=== PATIENT | male | born 1980 | race Caucasian/White ===

== ENCOUNTER 2021-05-11 11:51 | Inpatient (IN) | payer OTHER ==
[2021-05-11 12:33] VITALS: BMI 27.8
[2021-05-11] MEDS ORDERED: MAGNESIUM CITRATE 300 ML BOTTLE PO PRN (13:02)
[2021-05-11] MEDS ORDERED: IBUPROFEN 400 MG TABLET (FP) PO PRN (13:02)
[2021-05-11] MEDS ORDERED: BISMUTH SUBSALICYLATE 524 MG/30 ML PO PRN (13:02)
[2021-05-11] MEDS ORDERED: ONDANSETRON *ODT* 4 MG TABLET SL PRN (13:02)
[2021-05-11] MEDS ORDERED: ACETAMINOPHEN 325 MG TABLET (FP) PO PRN ×2 (13:02)
[2021-05-11] MEDS ORDERED: MENTHOL/PHENOL 1 EACH UD MM PRN (13:02)
[2021-05-11] MEDS ORDERED: NICOTINE 10 MG CARTRIDGE (INHALER) IH PRN (13:02)
[2021-05-11] MEDS ORDERED: MAGNESIUM HYDROX 2400MG/30ML ORAL SUSPENSION 30 ML CUP PO PRN (13:02)
[2021-05-11] MEDS ORDERED: MAG HYDROX/AL HYDROX/SIMETH 30 ML UNIT-DOSE CUP PO PRN (13:02)
[2021-05-11] MEDS: PRENATAL VITAMINS W/ FOLIC ACID TABLET (FP) PO SCH (14:59)
[2021-05-11] MEDS: hydrOXYzine PAMOATE 25 MG CAPSULE (FP) PO SCH ×3 (14:59→22:08)
[2021-05-11] MEDS: diazePAM 5 MG TABLET PO SCH ×2 (17:53→22:07)
[2021-05-11 18:46] LABS: HEMATOCRIT 43.6 % (35.4-49); HEMOGLOBIN 14.5 GM/dL (11.7-16.9); MCH 27.1 pg (25.7-33.7); MCHC 33.2 g/dl (32.0-35.9); MEAN CELL VOLUME 81.8 fl (80-96); MEAN PLT VOLUME 7.9 fl (7.5-11.1); PLATELET COUNT 304 10^3/uL (134-434); RBC 5.33 M/mm3 (4.00-5.60); RDW 14.7 % (11.9-15.9); WHITE BLOOD COUNT 10.8 K/mm3 (4.0-10.0)
[2021-05-11 18:49] LABS: CALCIUM 9.7 mg/dL (8.5-10.1)
[2021-05-11 18:52] LABS: ALBUMIN 4.2 g/dl (3.4-5.0); BLOOD UREA NITROGEN 23.4 mg/dL (7-18)
[2021-05-11 18:56] LABS: CREATININE 1.1 mg/dL (0.55-1.3)
[2021-05-11 18:57] LABS: BILIRUBIN,TOTAL 0.6 mg/dL (0.2-1); TOT PROT 8.3 g/dl (6.4-8.2)
[2021-05-11 19:37] LABS: HIV INTERPRETATION NEGATIVE (NEGATIVE)
[2021-05-11] MEDS: THIAMINE HCL 100 MG TABLET (FP) PO SCH (22:08)
[2021-05-11] MEDS: MELATONIN 5 MG TABLETS PO SCH (22:08)
[2021-05-12] MEDS ORDERED: methaDONE HCL 10 MG TABLET ONE (04:26)
[2021-05-12] MEDS ORDERED: methaDONE HCL 40 MG DISPERSABLE TABLET ONE (04:26)
[2021-05-12] MEDS ORDERED: methaDONE HCL 10 MG TABLET PO SCH (06:00)
[2021-05-12] MEDS: methaDONE 40 MG, methaDONE 30 MG PO SCH (06:54)
[2021-05-12] MEDS: hydrOXYzine PAMOATE 25 MG CAPSULE (FP) PO SCH ×2 (06:54→10:27)
[2021-05-12] MEDS: diazePAM 5 MG TABLET PO SCH ×3 (06:55→18:29)
[2021-05-12] MEDS: PRENATAL VITAMINS W/ FOLIC ACID TABLET (FP) PO SCH (10:27)
[2021-05-12] MEDS: diazePAM 5 MG TABLET PO PRN ×2 (18:29→22:36)
[2021-05-12] MEDS: THIAMINE HCL 100 MG TABLET (FP) PO SCH (22:37)
[2021-05-12] MEDS: MELATONIN 5 MG TABLETS PO SCH (22:37)
[2021-05-13] MEDS: diazePAM 5 MG TABLET PO SCH ×4 (00:05→22:14)
[2021-05-13] MEDS: PANTOPRAZOLE 40 MG TABLET PO SCH ×2 (00:37→10:50)
[2021-05-13] MEDS ORDERED: methaDONE HCL 40 MG DISPERSABLE TABLET ONE (04:49)
[2021-05-13] MEDS ORDERED: methaDONE HCL 10 MG TABLET ONE (04:49)
[2021-05-13] MEDS: methaDONE 40 MG, methaDONE 30 MG PO SCH (05:32)
[2021-05-13] MEDS ORDERED: ERGOCALCIFEROL (VIT D2) 50,000 UNIT (1.25 MG) CAPSULE PO SCH (10:00)
[2021-05-13] MEDS: PRENATAL VITAMINS W/ FOLIC ACID TABLET (FP) PO SCH (10:50)
[2021-05-13] MEDS: diazePAM 5 MG TABLET PO PRN ×2 (10:51→17:09)
[2021-05-13] MEDS: METHOCARBAMOL 500 MG TABLET PO PRN ×2 (17:10→22:15)
[2021-05-13] MEDS: THIAMINE HCL 100 MG TABLET (FP) PO SCH (22:13)
[2021-05-13] MEDS: MELATONIN 5 MG TABLETS PO SCH (22:13)
[2021-05-14] MEDS ORDERED: methaDONE HCL 10 MG TABLET ONE (04:46)
[2021-05-14] MEDS ORDERED: methaDONE HCL 40 MG DISPERSABLE TABLET ONE (04:46)
[2021-05-14] MEDS: methaDONE 40 MG, methaDONE 30 MG PO SCH (06:21)
[2021-05-14] MEDS: diazePAM 5 MG TABLET PO SCH ×2 (06:21→17:44)
[2021-05-14] MEDS: diazePAM 5 MG TABLET PO PRN (10:48)
[2021-05-14] MEDS: PANTOPRAZOLE 40 MG TABLET PO SCH (10:49)
[2021-05-14] MEDS: PRENATAL VITAMINS W/ FOLIC ACID TABLET (FP) PO SCH (10:49)
[2021-05-14] MEDS: hydrOXYzine PAMOATE 25 MG CAPSULE (FP) PO PRN ×2 (17:46→22:03)
[2021-05-14] MEDS: METHOCARBAMOL 500 MG TABLET PO PRN (17:46)
[2021-05-14] MEDS: THIAMINE HCL 100 MG TABLET (FP) PO SCH (22:04)
[2021-05-14] MEDS: MELATONIN 5 MG TABLETS PO SCH (22:04)
[2021-05-15] MEDS ORDERED: methaDONE HCL 10 MG TABLET ONE (04:36)
[2021-05-15] MEDS ORDERED: methaDONE HCL 40 MG DISPERSABLE TABLET ONE (04:37)
[2021-05-15] MEDS ORDERED: diazePAM 5 MG TABLET PO ONE (06:00)
[2021-05-15] MEDS: methaDONE 40 MG, methaDONE 30 MG PO SCH (06:39)
[2021-05-15 09:25] VITALS: BP 103/71; PULSE 53; TEMP 96.9
[2021-05-15] MEDS: PANTOPRAZOLE 40 MG TABLET PO SCH (10:32)
[2021-05-15] MEDS: PRENATAL VITAMINS W/ FOLIC ACID TABLET (FP) PO SCH (10:33)
== END 2021-05-15 11:39 | disposition other institution (70) | DRG 773 ==
LOC: YASAS 11:51 → Y3N 12:48
PROVIDERS: ADMIT Allergy & Immunology; ATTEND Allergy & Immunology
PROC: HZ2ZZZZ Detoxification Services for Substance Abuse Treatment (ICD-10-PCS; principal; 2021-05-11)
DX: F10.230 Alcohol dependence with withdrawal, uncomplicated (principal); F11.20 Opioid dependence, uncomplicated; F14.20 Cocaine dependence, uncomplicated; F17.210 Nicotine dependence, cigarettes, uncomplicated; G47.00 Insomnia, unspecified; K21.9 Gastro-esophageal reflux disease without esophagitis; R79.89 Other specified abnormal findings of blood chemistry; Z59.02 Unsheltered homelessness
CPT/HCPCS: 36415; 71046-TC-FY; 80053; 84520; 85027; 86780; 87389; C9803; U0003; U0005

== ENCOUNTER 2021-05-15 11:57 | Inpatient (IN) | payer OTHER ==
[2021-05-15] MEDS ORDERED: MAG HYDROX/AL HYDROX/SIMETH 30 ML UNIT-DOSE CUP PO PRN (13:34)
[2021-05-15] MEDS ORDERED: MAGNESIUM HYDROX 2400MG/30ML ORAL SUSPENSION 30 ML CUP PO PRN (13:34)
[2021-05-15] MEDS ORDERED: LOPERAMIDE HCL 2 MG CAPSULE PO PRN (13:34)
[2021-05-15] MEDS ORDERED: P-EPHED 60MG/TRIPROLIDI 2.5MG TABLET PO PRN (13:34)
[2021-05-15] MEDS ORDERED: ACETAMINOPHEN 325 MG TABLET (FP) PO PRN (13:34)
[2021-05-15] MEDS ORDERED: IBUPROFEN 400 MG TABLET (FP) PO PRN (13:34)
[2021-05-15] MEDS ORDERED: MENTHOL/PHENOL 1 EACH UD MM PRN (13:34)
[2021-05-15] MEDS ORDERED: guaiFENesin 200 MG/10 ML 10 ML UNIT-DOSE CUPS PO PRN (13:34)
[2021-05-15] MEDS ORDERED: MAGNESIUM CITRATE 300 ML BOTTLE PO PRN (13:34)
[2021-05-15] MEDS: hydrOXYzine PAMOATE 25 MG CAPSULE (FP) PO PRN ×2 (19:03→22:03)
[2021-05-15] MEDS: NICOTINE 10 MG CARTRIDGE (INHALER) IH PRN (19:04)
[2021-05-15] MEDS: THIAMINE HCL 100 MG TABLET (FP) PO SCH (22:00)
[2021-05-15] MEDS: MELATONIN 5 MG TABLETS PO SCH (22:00)
[2021-05-16] MEDS ORDERED: methaDONE HCL 10 MG TABLET ONE (04:11)
[2021-05-16] MEDS ORDERED: methaDONE HCL 40 MG DISPERSABLE TABLET ONE (04:11)
[2021-05-16] MEDS: methaDONE 40 MG, methaDONE 30 MG PO SCH (06:20)
[2021-05-16] MEDS: NICOTINE 10 MG CARTRIDGE (INHALER) IH PRN ×2 (10:26→17:31)
[2021-05-16] MEDS: PANTOPRAZOLE 40 MG TABLET PO SCH (10:26)
[2021-05-16] MEDS: PRENATAL VITAMINS W/ FOLIC ACID TABLET (FP) PO SCH (10:26)
[2021-05-16] MEDS: NICOTINE 21 MG/24 HOURS TOPICAL PATCH TD SCH (10:27)
[2021-05-16] MEDS: hydrOXYzine PAMOATE 25 MG CAPSULE (FP) PO PRN (17:30)
[2021-05-16] MEDS: MELATONIN 5 MG TABLETS PO SCH (21:06)
[2021-05-16] MEDS: GABAPENTIN 100 MG CAPSULE PO SCH (21:07)
[2021-05-16] MEDS: QUEtiapine FUMARATE 50 MG TABLET PO SCH (21:07)
[2021-05-16] MEDS: THIAMINE HCL 100 MG TABLET (FP) PO SCH (22:13)
[2021-05-17] MEDS ORDERED: methaDONE HCL 10 MG TABLET ONE (03:09)
[2021-05-17] MEDS ORDERED: methaDONE HCL 40 MG DISPERSABLE TABLET ONE (03:09)
[2021-05-17] MEDS: methaDONE 40 MG, methaDONE 30 MG PO SCH (06:29)
[2021-05-17] MEDS: GABAPENTIN 100 MG CAPSULE PO SCH ×2 (10:26→21:00)
[2021-05-17] MEDS: NICOTINE 21 MG/24 HOURS TOPICAL PATCH TD SCH (10:26)
[2021-05-17] MEDS: PANTOPRAZOLE 40 MG TABLET PO SCH (10:26)
[2021-05-17] MEDS: PRENATAL VITAMINS W/ FOLIC ACID TABLET (FP) PO SCH (10:26)
[2021-05-17] MEDS: NICOTINE 10 MG CARTRIDGE (INHALER) IH PRN (10:26)
[2021-05-17] MEDS: QUEtiapine FUMARATE 50 MG TABLET PO SCH (21:00)
[2021-05-17] MEDS: THIAMINE HCL 100 MG TABLET (FP) PO SCH (21:00)
[2021-05-17] MEDS: MELATONIN 5 MG TABLETS PO SCH (21:00)
[2021-05-18] MEDS ORDERED: methaDONE HCL 10 MG TABLET ONE (03:10)
[2021-05-18] MEDS ORDERED: methaDONE HCL 40 MG DISPERSABLE TABLET ONE (03:10)
[2021-05-18] MEDS: methaDONE 40 MG, methaDONE 30 MG PO SCH (06:23)
[2021-05-18 06:45] VITALS: BP 104/69; PULSE 72; TEMP 98.8
[2021-05-18] MEDS: PANTOPRAZOLE 40 MG TABLET PO SCH (09:47)
[2021-05-18] MEDS: PRENATAL VITAMINS W/ FOLIC ACID TABLET (FP) PO SCH (09:47)
[2021-05-18] MEDS: GABAPENTIN 100 MG CAPSULE PO SCH (09:47)
[2021-05-18] MEDS: NICOTINE 21 MG/24 HOURS TOPICAL PATCH TD SCH (09:47)
[2021-05-18] MEDS: NICOTINE 10 MG CARTRIDGE (INHALER) IH PRN (09:48)
[2021-05-20] MEDS ORDERED: ERGOCALCIFEROL (VIT D2) 50,000 UNIT (1.25 MG) CAPSULE PO SCH (10:00)
== END 2021-05-18 13:10 | disposition home or self-care (01) | DRG 772 ==
LOC: YASAS 11:57 → Y3W 12:01
PROVIDERS: ADMIT Allergy & Immunology; ATTEND Allergy & Immunology
PROC: HZ42ZZZ Group Counseling for Substance Abuse Treatment, Cognitive-Behavioral (ICD-10-PCS; principal; 2021-05-15)
DX: F10.20 Alcohol dependence, uncomplicated (principal); F11.20 Opioid dependence, uncomplicated; F14.20 Cocaine dependence, uncomplicated; F19.24 Other psychoactive substance dependence with psychoactive substance-induced mood disorder; F32.9 Major depressive disorder, single episode, unspecified; F41.9 Anxiety disorder, unspecified; G47.00 Insomnia, unspecified; K21.9 Gastro-esophageal reflux disease without esophagitis; Z56.0 Unemployment, unspecified; Z59.02 Unsheltered homelessness

== ENCOUNTER 2021-05-25 12:25 | Inpatient (IN) | payer OTHER ==
[2021-05-25 12:56] VITALS: BMI 28.5
[2021-05-25] MEDS ORDERED: ONDANSETRON *ODT* 4 MG TABLET SL PRN (14:21)
[2021-05-25] MEDS ORDERED: BISMUTH SUBSALICYLATE 262 MG/15 ML BTL PO PRN (14:21)
[2021-05-25] MEDS ORDERED: MAGNESIUM CITRATE 300 ML BOTTLE PO PRN (14:21)
[2021-05-25] MEDS ORDERED: NALOXONE (NARCAN) HCL 4 MG/0.1 ML SPRAY NS PRN (14:21)
[2021-05-25] MEDS ORDERED: IBUPROFEN 400 MG TABLET (FP) PO PRN (14:21)
[2021-05-25] MEDS ORDERED: MAG HYDROX/AL HYDROX/SIMETH 30 ML UNIT-DOSE CUP PO PRN (14:21)
[2021-05-25] MEDS ORDERED: MENTHOL/PHENOL 1 EACH UD MM PRN (14:21)
[2021-05-25] MEDS ORDERED: ACETAMINOPHEN 325 MG TABLET (FP) PO PRN ×2 (14:21)
[2021-05-25] MEDS ORDERED: MAGNESIUM HYDROX 2400MG/30ML ORAL SUSPENSION 30 ML CUP PO PRN (14:21)
[2021-05-25] MEDS ORDERED: PANTOPRAZOLE 40 MG TABLET PO SCH (14:30)
[2021-05-25] MEDS: NICOTINE 10 MG CARTRIDGE (INHALER) IH PRN (15:30)
[2021-05-25] MEDS: NICOTINE 14 MG/24 HOURS TOPICAL PATCH TD SCH (15:31)
[2021-05-25] MEDS: PANTOPRAZOLE 40 MG TABLET PO PRN (15:31)
[2021-05-25] MEDS: LORazepam 1 MG TABLET PO PRN ×2 (15:31→20:59)
[2021-05-25] MEDS: METHOCARBAMOL 500 MG TABLET PO PRN (15:31)
[2021-05-25] MEDS: LORazepam 2 MG TABLET PO SCH ×2 (17:46→23:02)
[2021-05-25] MEDS: hydrOXYzine PAMOATE 25 MG CAPSULE (FP) PO SCH ×2 (17:46→23:02)
[2021-05-25] MEDS: MELATONIN 5 MG TABLETS PO SCH (21:00)
[2021-05-25] MEDS: THIAMINE HCL 100 MG TABLET (FP) PO SCH (23:02)
[2021-05-26] MEDS: hydrOXYzine PAMOATE 25 MG CAPSULE (FP) PO SCH ×5 (05:26→22:16)
[2021-05-26] MEDS: LORazepam 2 MG TABLET PO SCH ×4 (05:26→22:15)
[2021-05-26] MEDS ORDERED: methaDONE HCL 40 MG DISPERSABLE TABLET PO ONE (07:45)
[2021-05-26] MEDS: NICOTINE 10 MG CARTRIDGE (INHALER) IH PRN (10:15)
[2021-05-26] MEDS: NICOTINE 14 MG/24 HOURS TOPICAL PATCH TD SCH (10:15)
[2021-05-26 10:23] LABS: HEMATOCRIT 38.9 % (35.4-49); HEMOGLOBIN 13.2 GM/dL (11.7-16.9); MCH 27.7 pg (25.7-33.7); MCHC 33.9 g/dl (32.0-35.9); MEAN CELL VOLUME 81.7 fl (80-96); MEAN PLT VOLUME 8.1 fl (7.5-11.1); PLATELET COUNT 316 10^3/uL (134-434); RBC 4.77 M/mm3 (4.00-5.60); RDW 14.7 % (11.9-15.9); WHITE BLOOD COUNT 8.9 K/mm3 (4.0-10.0)
[2021-05-26 11:08] LABS: CALCIUM 9.5 mg/dL (8.5-10.1)
[2021-05-26 11:10] LABS: ALBUMIN 3.8 g/dl (3.4-5.0); BLOOD UREA NITROGEN 20.8 mg/dL (7-18)
[2021-05-26 11:13] LABS: CREATININE 1.1 mg/dL (0.55-1.3)
[2021-05-26 11:14] LABS: BILIRUBIN,TOTAL 0.6 mg/dL (0.2-1)
[2021-05-26 11:15] LABS: TOT PROT 8.1 g/dl (6.4-8.2)
[2021-05-26] MEDS ORDERED: DOCUSATE SODIUM 100 MG CAPSULE (FP) PO PRN (12:08)
[2021-05-26] MEDS: METHOCARBAMOL 500 MG TABLET PO PRN (16:53)
[2021-05-26] MEDS: LORazepam 1 MG TABLET PO PRN (20:27)
[2021-05-26] MEDS: QUEtiapine FUMARATE 50 MG TABLET PO SCH (22:15)
[2021-05-26] MEDS: GABAPENTIN 100 MG CAPSULE PO SCH (22:15)
[2021-05-26] MEDS: THIAMINE HCL 100 MG TABLET (FP) PO SCH (22:15)
[2021-05-26] MEDS: MELATONIN 5 MG TABLETS PO SCH (22:16)
[2021-05-27] MEDS: LORazepam 1 MG TABLET PO SCH ×4 (05:15→22:36)
[2021-05-27] MEDS: methaDONE HCL 40 MG DISPERSABLE TABLET PO SCH (05:16)
[2021-05-27] MEDS: hydrOXYzine PAMOATE 25 MG CAPSULE (FP) PO SCH ×5 (05:16→22:36)
[2021-05-27] MEDS: GABAPENTIN 100 MG CAPSULE PO SCH ×2 (10:20→22:36)
[2021-05-27] MEDS: NICOTINE 14 MG/24 HOURS TOPICAL PATCH TD SCH (10:20)
[2021-05-27] MEDS: NICOTINE 10 MG CARTRIDGE (INHALER) IH PRN (10:23)
[2021-05-27] MEDS: PANTOPRAZOLE 40 MG TABLET PO PRN (17:29)
[2021-05-27] MEDS: QUEtiapine FUMARATE 50 MG TABLET PO SCH (22:36)
[2021-05-27] MEDS: MELATONIN 5 MG TABLETS PO SCH (22:36)
[2021-05-27] MEDS: THIAMINE HCL 100 MG TABLET (FP) PO SCH (22:36)
[2021-05-28] MEDS ORDERED: LORazepam 0.5 MG TABLET PO PRN
[2021-05-28] MEDS: hydrOXYzine PAMOATE 25 MG CAPSULE (FP) PO SCH ×5 (05:27→22:13)
[2021-05-28] MEDS: methaDONE HCL 40 MG DISPERSABLE TABLET PO SCH (05:27)
[2021-05-28] MEDS: LORazepam 0.5 MG TABLET PO SCH ×4 (05:27→22:14)
[2021-05-28] MEDS: NICOTINE 14 MG/24 HOURS TOPICAL PATCH TD SCH (10:13)
[2021-05-28] MEDS: PANTOPRAZOLE 40 MG TABLET PO PRN (10:13)
[2021-05-28] MEDS: GABAPENTIN 100 MG CAPSULE PO SCH ×2 (10:13→22:13)
[2021-05-28] MEDS: NICOTINE 10 MG CARTRIDGE (INHALER) IH PRN (10:15)
[2021-05-28] MEDS: METHOCARBAMOL 500 MG TABLET PO PRN (17:36)
[2021-05-28] MEDS: QUEtiapine FUMARATE 50 MG TABLET PO SCH (22:13)
[2021-05-28] MEDS: THIAMINE HCL 100 MG TABLET (FP) PO SCH (22:14)
[2021-05-28] MEDS: MELATONIN 5 MG TABLETS PO SCH (22:14)
[2021-05-29] MEDS ORDERED: LORazepam 0.5 MG TABLET PO ONE (05:00)
[2021-05-29] MEDS: methaDONE HCL 40 MG DISPERSABLE TABLET PO SCH (05:35)
[2021-05-29] MEDS: hydrOXYzine PAMOATE 25 MG CAPSULE (FP) PO SCH ×2 (05:36→10:22)
[2021-05-29 09:34] VITALS: BP 105/71; PULSE 66; TEMP 98.8
[2021-05-29] MEDS: GABAPENTIN 100 MG CAPSULE PO SCH (10:21)
[2021-05-29] MEDS: NICOTINE 14 MG/24 HOURS TOPICAL PATCH TD SCH (10:21)
[2021-05-29] MEDS: NICOTINE 10 MG CARTRIDGE (INHALER) IH PRN (10:22)
== END 2021-05-29 12:27 | disposition home or self-care (01) | DRG 773 ==
LOC: YASAS 12:25 → Y6N 13:17
PROVIDERS: ADMIT Allergy & Immunology; ATTEND Allergy & Immunology
PROC: HZ2ZZZZ Detoxification Services for Substance Abuse Treatment (ICD-10-PCS; principal; 2021-05-25)
DX: F10.230 Alcohol dependence with withdrawal, uncomplicated (principal); F11.20 Opioid dependence, uncomplicated; F14.10 Cocaine abuse, uncomplicated; F17.210 Nicotine dependence, cigarettes, uncomplicated; F32.9 Major depressive disorder, single episode, unspecified; F19.24 Other psychoactive substance dependence with psychoactive substance-induced mood disorder; K21.9 Gastro-esophageal reflux disease without esophagitis; Z56.0 Unemployment, unspecified; Z59.02 Unsheltered homelessness
CPT/HCPCS: 36415; 80053; 85027; 86780; C9803; U0003; U0005